=== PATIENT | female | born 1965 | race Two or more races ===

== ENCOUNTER 2017-06-05 05:35 | Inpatient (IN) | END 2017-06-08 15:30 | disposition home or self-care (01) | DRG 743 ==

== ENCOUNTER 2017-06-25 23:05 | Emergency (ER) | END 2017-06-26 04:04 | disposition home or self-care (01) ==

== ENCOUNTER 2017-10-18 18:39 | Inpatient (IN) | END 2017-10-21 16:40 | disposition home or self-care (01) | DRG 639 ==

== ENCOUNTER 2017-12-24 22:15 | Observation (INO) | END 2017-12-26 21:36 | disposition home or self-care (01) ==

== ENCOUNTER 2018-08-15 08:21 | Day surgery (SDC) | payer BC ==
[~2018-08-15] VITALS: Ht 157.5 cm; Wt 76.5 kg
[~2018-08-15 08:21] MED LIST: ALPR0.254 PO; BISA5TAB6 PO; CHOL200073 PO; INSU100C SQ; LANT3I SC; LEVO25TA6 PO; MIDO5TAB PO; OMEP20CA16 PO
[2018-08-15 09:21] VITALS: Ht 157.5 cm; Wt 76.5 kg
[2018-08-15 10:07] VITALS: BP 135/73; PULSE 77; RESP 21
[2018-08-15] MEDS ORDERED: FENTAnyl 50 MCG/ML VIAL ONE (10:52)
[2018-08-15] MEDS ORDERED: MIDAZOLAM 1 MG/ML 2 ML INJ ONE ×3 (10:52)
--- NOTE | 2018-08-16 12:30 | CONS ---
DATE OF ADMISSION: 08/15/2018 DATE OF CONSULTATION: PATIENT NAME: ANDRES HODGE TYPE OF CONSULTATION: Preoperative gastroenterology. Dear Dr. Schwarz: I thank you very much for this kind referral. HISTORY OF PRESENT ILLNESS: Ms. Andres Hodge is a 53-year-old female patient who has been referred t o me for further evaluation of change in the bowel habit with constipation. No past history of colon neoplasm. Appetite is poor and she states that she has been losing weight. She also complains of u pper abdominal pain and chronic heartburn, not responding to therapy. Not on nonsteroidal anti-infla mmatory agents. No history of gallstones. Status post therapy for hepatitis C and she states that s he is in remission. Not a hypertensive. PAST MEDICAL HISTORY: She has diabetes. No heart disease or lung problem. The patient has got a hi story of renal stones for which she has undergone surgery. She has hypothyroidism. SOCIAL HISTORY: The patient is a smoker. Denies alcohol abuse. FAMILY HISTORY: No family history of gastrointestinal tract neoplasm. ALLERGIES: ALLERGIC TO MORPHINE. MEDICATIONS: 1. Insulin. 2. Levothyroxine. 3. Xanax. PHYSICAL EXAMINATION: VITAL SIGNS: She is 5 feet, 2 inches tall and weighs 160 pounds. HEART: Normal heart sounds. LUNGS: Clear. ABDOMEN: Soft. No masses. Normal bowel sounds. NEUROLOGIC: Normal. IMPRESSION: 1. Change in the bowel habit with constipation. 2. The patient needs screening colonoscopy. 3. Chronic heartburn and upper abdominal pain, not responding to therapy. 4. The patient also complains of weight loss. 5. Diabetes mellitus. 6. History of renal stones, for which she has undergone surgery. 7. History of hepatitis C for which she has undergone therapy and she states she is in remission. 8. Hypothyroidism. 9. She takes Xanax for anxiety. 10. The patient is an occasional smoker. 11. ALLERGY TO MORPHINE. PLAN: 1. The patient was strongly advised to stop smoking. 2. Nexium 24 hours 20 mg p.o. q.a.m. 3. MiraLax 17 grams dissolved in a glass of water p.o. daily for constipation. 4. Screening colonoscopy and upper endoscopy for further evaluation. The procedures and possible complications are well explained to the patient. She understands and con sents to the procedures. I thank you once again. With warmest personal regards, Dictated By: FRANCINE QUINONEZ/WILMAR Conf#: [id number] DID#: [id number]
== END 2018-08-15 15:04 | disposition home or self-care (01) ==
LOC: GIL 08:21
PROVIDERS: ATTEND Internal Medicine Gastroenterology
DX: Z12.11 Encounter for screening for malignant neoplasm of colon (principal); K64.8 Other hemorrhoids; E11.9 Type 2 diabetes mellitus without complications; Z79.4 Long term (current) use of insulin; E03.9 Hypothyroidism, unspecified
CPT/HCPCS: 43239; 45378; 82962; 88305; 88312; J2250; J3010; Z7610